=== PATIENT | female | born 1995 | race Hispanic/Latino ===

== ENCOUNTER 2023-12-16 22:17 | Emergency (ER) | payer MEDICARE, SELFPAY ==
[2023-12-16 22:27] VITALS: BP 127/79
[2023-12-16 22:49] LABS: Urine Albumin Negative (Neg - Trace); Urine Bilirubin Negative (Negative); Urine Character Clear (Clear); Urine Color Yellow; Urine Glucose Negative (Negative); Urine Ketone Negative (Negative); Urine Leukocyte Trace (Negative); Urine Nitrite Negative (Negative); Urine Occult Blood Negative (Negative); Urine Specific Gravity 1.015 (<1.030); Urine Urobilinogen 1+ (Neg - 1+); Urine pH 6.5 (5.0-9.0)
[2023-12-16 22:54] LABS: Urine Squamous Cell 26-30 /LPF (Few)
[2023-12-16 22:55] LABS: Urine Bacteria Few (Negative); Urine Mucus Few; Urine Red Blood Cell 0-2 /HPF (0-2); Urine White Cell 0-2 /HPF (0-5)
[2023-12-16 23:00] VITALS: BMI 46.9
--- NOTE | 2023-12-16 23:32 | ED.GENMED ---
History of Present Illness
General
Chief Complaint: Urinary Symptoms
Time Seen by Provider: 12/16/23 22:56
History of Present Illness
History of Present Illness:
28-year-old female without significant past medical history presenting to the emergency department for dysuria and right flank pain. Patient reports symptoms for the past 4 days. Also notes that when she wiped, did see some blood. Denies any
abnormal vaginal discharge. Reports similar symptoms back in September, believes that she was told that she had a urinary tract infection. Denies any associate fever, nausea, vomiting. Denies any abdominal surgeries in the past. Denies chest pain or
difficulty breathing. Denies additional acute medical complaints
Past History
Past History
ED Past Medical History: Hypothyroidism
ED Past Surgical History: None
Social History
Tobacco: Non-smoker
Alcohol: None
Drug: None
Personal:
Living: with family (with others)
Employment: Employed ([employer])
Phy Exam
Physical Exam
Physical Exam:
General: Well-appearing, no clinical signs of dehydration, nontoxic and in no acute distress
HEENT: protecting airway
Neck: appears supple
CV: Normal heart rate, regular rhythm, no evidence of cyanosis
Resp: No accessory muscle use, no increased work of breathing, lungs clear to auscultation bilaterally
Abd: Soft and non-distended, mild suprapubic tenderness, mild right CVA tenderness
Extremities: No deformities, no swelling, no erythema, pulses and sensation intact
Neuro: alert, no focal neurologic deficit
: deferred
Rectal: deferred
Psych: Normal affect
Skin: Intact
Course
Orders/Labs/Results
Orders:
Orders
12/16/23 22:41
Add On- LAB Urgent
Tests Added?: serum qualitative HCG
UA Reflex to Culture [Urinalysis Reflex To Culture] Urgent
Date Specimen was Collected: 12/16/23
Time Specimen was Collected: 22:31
Urine Microscopic Reflex Cult Urgent
12/16/23 23:18
Ketorolac [Toradol] 15 mg IM NOW STA
Test Result ONCE
12/16/23 23:25
Basic Metabolic Panel Urgent
Complete Blood Count/With Diff Urgent
HCG, Serum Qualitative Screen Urgent
Comment: ADD ON
12/17/23 00:30
CT Abd/pel Without Iv Or Oral Urgent
Reason For Exam: R-flank, hematuria, possible stone
Abnormal Lab Results
12/16/23 12/16/23
22:41 23:25
WBC 11.2 H 10^3/uL
(4.8-10.8)
RDW 14.7 H %
(11.5-14.5)
Absolute Lymphs (auto) 3.6 H 10^3/uL
(1.2-3.4)
Absolute Monos (auto) 0.9 H 10^3/uL
(0.1-0.6)
Glucose 104 H mg/dl
(70-99)
Leukocyte Esterase Rfl Trace A
(Negative)
Urine Bacteria (Reflex) Few A
(Negative)
12/16/23 23:25
12/16/23 23:25
Vital Signs
Initial and Last Documented VS:
Initial Vital Signs
Temp Pulse Resp BP Pulse Ox
98.2 F 71 20 127/79 97
12/16/23 22:27 12/16/23 22:27 12/16/23 22:27 12/16/23 22:27 12/16/23 22:27
Last Documented Vital Signs
Temp Pulse Resp BP Pulse Ox
98.2 F 71 18 127/79 98
12/16/23 22:27 12/16/23 22:27 12/17/23 00:00 12/16/23 22:27 12/16/23 23:45
MDM/Problems Addressed
MDM/Problems Addressed:
28-year-old female without significant past medical history presenting for dysuria, hematuria, right flank pain for 4 days. Vital signs on arrival are normal.
On exam, patient well-appearing, nontoxic. Benign abdominal exam, minimal suprapubic tenderness, minimal right CVA tenderness. Urinalysis obtained, small amount of leukocytes and bacteria. Possible UTI, however nephrolithiasis is also
consideration versus developing pyelonephritis. Will screen with laboratory analysis and CT imaging. Toradol administered for pain. Lower suspicion for ovarian pathology or appendicitis without lateralizing tenderness on exam.
01:20 -CT without acute pathology, no sign of kidney stone or perinephric stranding. At this time suspect uncomplicated UTI. Will start on Keflex. Patient otherwise remains hemodynamically stable. Feel stable for discharge. Advised outpatient
PCP follow-up. Return precautions discussed and patient verbalized understanding
*Critical Care Note
Total Time (30-74mins, 75-104mins- exclusive of procedures): Not Applicable
ED Attending Note
-
Portions of this chart may have been created with voice recognition software.� Occasional wrong word or��sound alike� substitutions may have occurred due to the inherent limitations of voice recognition software.
Discharge Plan
Departure
Prescriptions:
No Action
levothyroxine 200 mcg Capsule
200 mcg PO DAILY
Referrals:
PRIVATE,PHYSICIAN [Family Provider] -
Interventions
Interventions:
*General Assessment Last Done: 12/16/23 23:01
*Neglect/Abuse Screening Last Done: 12/16/23 23:01
ED- Fall Risk Assessment Last Done: 12/16/23 23:49
*ED COVID-19 Vaccine History Last Done: 12/16/23 23:01
ED-Female Genitourinary Assessment Last Done: 12/16/23 23:49
Discharge Date and Time
Print Language: [id number]
[2023-12-16 23:41] LABS: % Basophils 0.3 % (0-2); % Immature Granulocytes 0.3 % (0-0.5); % Lymphocytes 32.5 % (20.5-51.1); % Neutrophils 56.9 % (42.2-75.2); Absolute Eosinophils 0.2 10^3/uL (0-0.7); Absolute Lymphocytes 3.6 10^3/uL (1.2-3.4); Absolute Monocytes 0.9 10^3/uL (0.1-0.6); Absolute Neutrophils 6.4 10^3/uL (1.4-6.5); Hematocrit 38.9 % (37.0-47.0); Hemoglobin 13.1 g/dL (12.0-16.0); Mean Corp Hgb Conc. 33.7 g/dL (33.0-37.0); Mean Corpuscular Hgb 29.2 pg (27.0-31.0); Mean Corpuscular Volume 86.8 fL (81.0-99.0); Mean Platelet Volume 9.4 fL (7.4-10.4); Nucleated Red Blood Cells % 0 %; Platelet Count 313 10^3/uL (130-400); Red Blood Cell Count 4.48 10^6/uL (4.20-5.40); Red Cell Dist. Width 14.7 % (11.5-14.5); White Blood Cell Count 11.2 10^3/uL (4.8-10.8)
[2023-12-16] MEDS: TORADOL 15 MG IM (23:44)
[2023-12-16 23:57] LABS: HCG, Serum Qualitative Screen Negative
[2023-12-16 23:59] LABS: Blood Urea Nitrogen 12 mg/dl (7-17); Calcium 9.5 mg/dl (8.4-10.2); Carbon Dioxide 24 mmol/L (22-30); Chloride 104 mmol/L (98-107); Estimated Creatinine Clearance > 125 ml/min; Glucose 104 mg/dl (70-99); Potassium 4.2 mmol/L (3.5-5.1); Sodium 137 mmol/L (135-145); eGFR > 60.00
[2023-12-17] VITALS: BP 113/77
[2023-12-17 01:00] VITALS: BP 100/60
[2023-12-17] MEDS: KEFLEX 500 MG PO (01:28)
== END 2023-12-17 01:36 | disposition home or self-care (01) ==
LOC: EMR 22:17
PROVIDERS: Emergency Medicine; EMERGENCY PHYSICIAN Student in an Organized Health Care Education/Training Program
DX: R30.0 Dysuria (principal); N39.0 Urinary tract infection, site not specified
CPT/HCPCS: 99284; 96372; 74176; 80048; 81003; 81015; 84703; 85025